=== PATIENT | male | born 1950 | race Caucasian/White ===

== ENCOUNTER 2022-07-31 11:36 | Inpatient (IN) | payer BC, OTHER ==
[~2022-07-31] VITALS: Ht 175.3 cm; Wt 69.4 kg
[2022-07-31 12:17] LABS: HEMATOCRIT 42.3 % (36.7-47.1); MEAN CORPUSCULAR HEMOGLOBIN 31.8 uug (23.8-33.4); MEAN CORPUSCULAR VOLUME 92.1 fL (73.0-96.2); PLATELET COUNT (AUTO) 249 K/uL (152-348)
[2022-07-31 12:57] LABS: CARBON DIOXIDE 32 mmol/L (21-32); CHLORIDE 101 mmol/L (98-107); CREATININE 1.4 mg/dL (0.6-1.3); GLUCOSE 93 mg/dL (74-106); POTASSIUM 4.4 mmol/L (3.5-5.1); UREA NITROGEN, BLOOD 28 mg/dL (7-18)
[2022-07-31] MEDS ORDERED: MULT-594 PO (13:09)
[2022-07-31] MEDS ORDERED: MAGN500P33 PO (13:09)
[2022-07-31] MEDS ORDERED: OXCA600T5 PO (13:09)
[2022-07-31] MEDS ORDERED: QUET100T PO (13:09)
[2022-07-31] MEDS ORDERED: ASPI81TA31 PO (13:09)
[2022-07-31] MEDS ORDERED: LOSA25TA27 PO (13:09)
[2022-07-31] MEDS ORDERED: ACET-73 PO (13:09)
[2022-07-31] MEDS ORDERED: KRIL1CAP18 PO (13:09)
[2022-07-31] MEDS ORDERED: BUPR-319 PO (13:09)
[2022-07-31] MEDS ORDERED: CHOL1CRY2 PO (13:09)
[2022-07-31] MEDS ORDERED: TAMS-3 PO (13:09)
[2022-07-31] MEDS ORDERED: SIMV-49 PO (13:09)
[2022-07-31] MEDS ORDERED: GABA300C PO (13:09)
[2022-07-31 13:14] LABS: *BILIRUBIN,URIN NEGATIVE (NEGATIVE); *BLOOD, URINE NEGATIVE (NEGATIVE); *CLARITY,URINE CLEAR (CLEAR); *COLOR,URINE YELLOW (YELLOW); *KETONES,URINE NEGATIVE (NEGATIVE); *UROBILINOGEN,URINE 0.2 E.U./dl (NORMAL); LEUKOCYTE ESTERASE ,URINE NEGATIVE (NEGATIVE); NITRITE, URINE NEGATIVE (NEGATIVE); UGLUCOSE NEGATIVE (NEGATIVE)
[2022-07-31 13:19] LABS: ALANINE AMINOTRANSFERASE 30 U/L (16-63); ALKALINE PHOSPHATASE 101 U/L (50-136); ASPARTATE AMINOTRANSFERASE 18 U/L (15-37); BILIRUBIN,DIRECT < 0.1 mg/dL (0.0-0.2); BILIRUBIN,TOTAL 0.3 mg/dL (0.2-1.0); TOTAL PROTEIN, SERUM 7.1 g/dL (6.4-8.2)
[2022-07-31 13:22] LABS: ACETAMINOPHEN < 10.0 ug/mL (10-30)
[2022-07-31 13:23] LABS: ETHANOL < 3 MG/DL (0-0)
[2022-07-31 13:29] LABS: *AMPHETAMINE, URINE NEGATIVE (NEGATIVE); *CANNABINOID, URINE NEGATIVE (NEGATIVE); *COCCAINE, URINE NEGATIVE (NEGATIVE); *OPIATE, URINE NEGATIVE (NEGATIVE); *PHENCYCLIDINE SCREEN,URINE NEGATIVE (NEGATIVE)
--- NOTE | 2022-07-31 14:54 | NUR ---
Covid-19 swab test done and sent to lab.
--- NOTE | 2022-07-31 14:58 | NUR ---
per pt., Okay to release info to Daughter, SORAIDA YUDELKA . Daughter knows pt Hx., etc.
--- NOTE | 2022-07-31 15:01 | NUR ---
1 to 1 sitter at the bedside.
--- NOTE | 2022-07-31 17:45 | NUR ---
Called report to RACHEL Guevara.
--- NOTE | 2022-07-31 20:54 | NUR ---
pt is ambulatory with steady gait. informed the pt we are waiting on insurance regarding him being admitted to the mental health unit at this hospital.
--- NOTE | 2022-07-31 21:55 | NUR ---
report given to chon in mental health pt will go to room 139a.
[2022-07-31 22:15] VITALS: BP 147/93
--- NOTE | 2022-07-31 22:15 | NUR ---
pt taken to mental health unit by seasonal warehouse associate by wheelchair.
[2022-07-31] MEDS ORDERED: MAG HYDROX/AL HYDROX/SIMETH 30 ML LIQUID UDC PO PRN (23:30)
[2022-07-31] MEDS ORDERED: LORAZEPAM 1 MG TABLET PO PRN (23:30)
[2022-07-31] MEDS ORDERED: ACETAMINOPHEN 325 MG TABLET PO PRN (23:30)
[2022-07-31] MEDS ORDERED: BLOOD SUGAR DIAGNOSTIC 1 EACH STRIP VI ONE (23:30)
[2022-07-31] MEDS ORDERED: MAGNESIUM HYDROXIDE 30 ML LIQUID UDC PO PRN (23:30)
[2022-07-31] MEDS: TEMAZEPAM 7.5 MG CAPSULE PO PRN (23:48)
--- NOTE | 2022-08-01 05:04 | NUR ---
GPS: Admitting Nursing Notes: Depressed: Patient admitted to MHU on 5150. BIB ER via wheel chair. Upon face to face evaluation AOx3, cooperative, speech clear, understands when spoken to. Depressed with anxiety, and crying. Patient stated "nobody is friendly towards me." "Nobody smiles and says hi to me when I say hi to them." "It's not the same as it use to be." Patient is ambulatory without assistance nor assistive device. Although gait and balance is unsteady. Denies any pain. No s/s of resp distress. Patient was oriented to unit, understands reason for being admitted, and the unit's rules. Patient is well nourished, was given snacks and drinks. Patient requested medication for insomnia. Temazepam given @ 2348 hours. Patient rights explained to her, and given the rights handbook and advisement at bedside. Patient safety in place. Will continue to monitor.
[2022-08-01 08:24] LABS: ALANINE AMINOTRANSFERASE 26 U/L (16-63); ALKALINE PHOSPHATASE 103 U/L (50-136); ASPARTATE AMINOTRANSFERASE 15 U/L (15-37); BILIRUBIN,TOTAL 0.6 mg/dL (0.2-1.0); CARBON DIOXIDE 31 mmol/L (21-32); CHLORIDE 100 mmol/L (98-107); CREATININE 1.4 mg/dL (0.6-1.3); GLUCOSE 102 mg/dL (74-106); TOTAL PROTEIN, SERUM 7.2 g/dL (6.4-8.2); UREA NITROGEN, BLOOD 21 mg/dL (7-18)
[2022-08-01 08:44] VITALS: BP 168/90
[2022-08-01] MEDS ORDERED: LORAZEPAM 0.5 MG TABLET PO PRN (12:15)
--- NOTE | 2022-08-01 12:30 | NUR ---
GPS: Nursing Notes: Severe Anxiety: Patient with severe anxiety, found on his room, laying down on his left side on the floor, stating "I want to hurt myself..", "I want to hit my head against the floor..", staff assisting him to get up and sit him near the nursing station, when asked if he fell, stated "No, I laid down to hurt my head against the floor..", no redness or bruises noted on his head, constantly stating the he wants to , anxious, poor impulse control, setting limits, but unable to follow directions, continue to monitor for safety, staff called Dr. Robledo due to self destructive behavior.
[2022-08-01] MEDS ORDERED: OLANZAPINE 10 MG VIAL IM ONE (12:40)
[2022-08-01] MEDS: CLONAZEPAM 0.5 MG TABLET PO SCH ×2 (12:42→20:13)
[2022-08-01] MEDS: OXCARBAZEPINE 300 MG TABLET PO SCH ×2 (12:42→20:12)
--- NOTE | 2022-08-01 13:02 | NUR ---
GPS: Nursing Notes: Chemical Restraint: Patient continue with self destructive behavior, shouting "If I don't get help I hurt myself.. I will hit my head hard..", trying to lay down on the floor, stated "I am hearing voices telling me to jump off a building..", redirected, but unable to follow directions due to his self destructive behavior, Dr. Robledo called and ordered: Zyprexa 5mg IM STAT X1 for self destructive behavior, R=18, medication IM given at this time, continue to monitor for safety, continue with treatment plan.
[2022-08-01] MEDS ORDERED: BENZ0.5T43 PO (13:20)
--- NOTE | 2022-08-01 13:32 | NUR ---
GPS: Nursing Notes: Reassessment of Chemical Restraint: Patient sitting next to the nursing station. Patient is calmed and relaxed, R18, medication IM was effective, continue to monitor for safety, continue with treatment plan.
--- NOTE | 2022-08-01 14:58 | NUR ---
MEAGAN Family Contact: MEAGAN contacted pt's nephew, Pedro Pablo ([phone]) and discussed the pt's discharge plan. Pedro Pablo informed this press writer that pt will return to [facility] located at [address] [place] [address] in [place] [address] ([phone]), Pedro Pablo informed MEAGAN to speak to [facility] for any questions. Pedro Pablo stated he will provide transportation for the pt upon discharge. Pedro Pablo stated he is the only point of contact for the pt.
[2022-08-01 16:57] VITALS: BP 98/69
[2022-08-01] MEDS ORDERED: CLONAZEPAM 0.5 MG TABLET PO SCH (17:00)
[2022-08-01] MEDS ORDERED: OXCARBAZEPINE 300 MG TABLET PO SCH (17:00)
[2022-08-01] MEDS: GABAPENTIN 300 MG CAPSULE PO SCH (18:15)
[2022-08-01 19:53] VITALS: BP 95/52
[2022-08-01] MEDS: QUETIAPINE FUMARATE 100 MG TABLET PO SCH (20:06)
[2022-08-01] MEDS: TAMSULOSIN HCL 0.4 MG CAP.SR.24H PO SCH (20:07)
[2022-08-01] MEDS: TEMAZEPAM 7.5 MG CAPSULE PO PRN (20:44)
[2022-08-01] MEDS ORDERED: SIMVASTATIN 40 MG TABLET PO SCH (21:00)
--- NOTE | 2022-08-02 04:41 | NUR ---
GPS NOTES: Patient received in the hallway,sitting in the gerichair, he is calm at first approached, then later is noted with confusion regarding his medications. Explained that some of his medications he is requesting is his AM routine medications. He got up and was very unsteady, he is advised to sit again in the chair for safety near the nurses station for close observation and is compliant. Patient has a brief moment of aggression noted when attempt to get out of the chair, explained that he is in close observation d/t safety, he became argumentative and states he is tired and wants to go to bed. 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 He slept well during shift, frequent monitoring observed for danger to self.
[2022-08-02 07:30] VITALS: BP 125/90
[2022-08-02] MEDS: ASPIRIN 81 MG TAB.CHEW PO SCH (08:26)
[2022-08-02] MEDS: CLONAZEPAM 0.5 MG TABLET PO SCH (08:27)
[2022-08-02] MEDS: LOSARTAN POTASSIUM 25 MG TABLET PO SCH ×2 (08:27→17:00)
[2022-08-02] MEDS: MULTIVITAMINS,THERAPEUTIC TABLET PO SCH (08:28)
[2022-08-02] MEDS: GABAPENTIN 300 MG CAPSULE PO SCH ×2 (08:28→17:14)
[2022-08-02] MEDS: OXCARBAZEPINE 300 MG TABLET PO SCH ×3 (08:28→17:14)
[2022-08-02] MEDS ORDERED: Medication Not On Formulary EA (Multivitamins (Multivitamin) 1 TAB) PO SCH (09:00)
[2022-08-02] MEDS ORDERED: Medication Not On Formulary EA (Krill/Om-3/Dha/Epa/Phospho/Ast (Krill Oil 500 mg Softgel PO SCH (09:00)
--- NOTE | 2022-08-02 15:36 | NUR ---
MEAGAN UR Note: MEAGAN contacted [facility] at [phone] to speak to Kaity and was not able to leave a voicemail regarding authorization review for the pt for continuation of care.
--- NOTE | 2022-08-02 16:08 | NUR ---
MEAGAN Initial Discharge Note: Pt currently resides at [facility] located at [address] [place] [address] in [place] [address] ([phone]). Pt spoke with Shannan at the facility who stated pt is welcome back upon discharge. Pt's nephew, Pedro Pablo ([phone]) stated that he will provide transportation for the pt to return to [place] upon discharge from [facility]. MEAGAN will continue to work with pt, family and MD to ensure a safe and proper discharge plan.
--- NOTE | 2022-08-02 16:09 | NUR ---
Patient is depressed, quiet, labile, denies suicidal ideations. A/O X 3 to person, place. Patient is compliant with medications and follows directions. Self care. Emotional support provided. Fall and safety precautions implemented.
[2022-08-02 17:03] VITALS: BP 105/75
[2022-08-02 19:45] VITALS: BP 114/85
[2022-08-02] MEDS: QUETIAPINE FUMARATE 100 MG TABLET PO SCH (20:32)
[2022-08-02] MEDS: TAMSULOSIN HCL 0.4 MG CAP.SR.24H PO SCH (20:32)
[2022-08-02] MEDS ORDERED: SIMVASTATIN 20 MG TABLET PO SCH (21:00)
--- NOTE | 2022-08-02 21:29 | NUR ---
GPS: Received patient lying in bed. Patient is awake and responding to his name, pleasant upon approach. compliant with meds. internally preoccupied. unable to formulate a viable plan for self care, continue to monitor for safety, participating in therapeutic groups, continue with treatment plan.
--- NOTE | 2022-08-03 05:50 | NUR ---
GPS: Patient remain calm and cooperative with meds and care. no prn given through the shift. slept 8.45 hrs through the night. continue plan of care.
[2022-08-03 07:30] VITALS: BP 162/88
--- NOTE | 2022-08-03 08:27 | NUR ---
MEAGAN UR Note: MEAGAN contacted Kaity at [facility] ([phone]) and was not able to get connected or leave a voicemail regarding pt's authorization review. MEAGAN informed Directors, Dr. Mckeon and Dr. Reilly for the contact attempt. MEAGAN will continue to contact [facility].
[2022-08-03] MEDS: GABAPENTIN 300 MG CAPSULE PO SCH (09:05)
[2022-08-03] MEDS: OXCARBAZEPINE 300 MG TABLET PO SCH ×2 (09:05→13:43)
[2022-08-03] MEDS: ASPIRIN 81 MG TAB.CHEW PO SCH (09:05)
[2022-08-03] MEDS: MULTIVITAMINS,THERAPEUTIC TABLET PO SCH (09:05)
--- NOTE | 2022-08-03 09:10 | NUR ---
MEAGAN Family Contact: MEAGAN contacted pt's nephew, Pedro Pablo ([phone]) and discussed the pt's possible discharge plan for today. MEAGAN informed Pedro Pablo that this residential mortgage underwriter has not been able to be in contact with [facility] yet and will confirm once this residential mortgage underwriter speaks with them. Pedro Pablo informed MEAGAN that he would like to pick out hand the pt today. MEAGAN stated she will update Pedro Pablo regarding the insurance contact and with the Psychiatrist.
[2022-08-03 09:12] VITALS: BP 162/88
[2022-08-03] MEDS: LOSARTAN POTASSIUM 25 MG TABLET PO SCH (09:12)
--- NOTE | 2022-08-03 09:12 | NUR ---
MEAGAN UR Note: MEAGAN contacted Kaity at [facility] ([phone]) and was able to leave a detailed voicemail this time regarding pt's discharge plan and to contact this commercial lines underwriter back for UR authorization review. MEAGAN informed Kaity that a fax of patients clinicals has been sent to ([phone]).
--- NOTE | 2022-08-03 09:18 | NUR ---
Social Work Coordination of Care: Audio/Visual Operator faxed patient's referral packet including: History and Physical, Consultation, Progress Notes, Medication List and Labs to the following facilities for review and possible usp placement: [facility] P:[phone] F: ([phone]). (Attention to [facility] [phone]).
--- NOTE | 2022-08-03 09:21 | NUR ---
MEAGAN UR Note Update: MEAGAN contacted a second number at [facility] ([phone]) and spoke with Patricia. MEAGAN informed Patricia the clinicals and progress of the pt has been faxed. Patricia stated to this scientific writer that she will contact this scientific writer with an update for the pt's continuation of care once the fax is received and reviewed. MEAGAN informed Patricia that the pt has a discharge plan confirmed by the pt's nephew, Pedro Pablo ([phone]) for today to return to either pt's assisted living at [facility] or home with family. MEAGAN also informed Patricia that this scientific writer left a voicemail for Kaity as well. Patricia stated she is currently busy and that Patricia can help as well.
--- NOTE | 2022-08-03 12:00 | NUR ---
Patient is isolative, withdrawn, cooperative with nursing care, compliant with medications. A/O X 3 to person, place. Self care. Emotional support provided. Fall and safety precautions implemented.
--- NOTE | 2022-08-03 12:13 | NUR ---
MEAGAN Discharge Note: Pt will be discharged to [facility] located at [address] [place] [address] ([phone]) at 2PM. MEAGAN spoke with admin coordinator, Shannan at the facility who states they are ready to accept the patient today. Pt is aware and agreeable with discharge plan. Pts nephew, Pedro Pablo ([phone]) and pts sister, Almaz ([phone]) is aware and agreeable with the discharge plan. Pt is alert and oriented x4, is unable to plan for self-care at this time. However, pt is willing to to return to [facility] and accept care. Pt denies any suicidal or homicidal ideation. Pt will follow-up at the facility with Psychiatrist, Dr. Childers ([phone]) and pts outpatient Safety Equipment Testing Specialist. Pt presents with calm mood and congruent affect. PHARMACY: [facility] ([phone]) [address] [facility].
[2022-08-03] MEDS ORDERED: GLUCERNA SHAKE 237 ML CAN PO SCH (12:15)
--- NOTE | 2022-08-03 14:01 | NUR ---
Medical prescription was called in to [facility] pharmacy. [phone]. Spoke with Jenae, pharmacist.
--- NOTE | 2022-08-03 16:15 | NUR ---
Firearms Report: Production Hardener completed and submitted a [employer] firearms report for 5150 a danger to himself. A copy of report has been placed in patient chart.
== END 2022-08-03 14:00 | DRG 885 ==
LOC: ER 11:36 → GPS 21:50
PROVIDERS: ADMIT Psychiatry & Neurology Psychosomatic Medicine; ATTEND Internal Medicine
DX: F31.9 Bipolar disorder, unspecified (principal); N17.0 Acute kidney failure with tubular necrosis; R45.851 Suicidal ideations; D68.59 Other primary thrombophilia; G20 Parkinson's disease; E11.9 Type 2 diabetes mellitus without complications; E78.5 Hyperlipidemia, unspecified; F22 Delusional disorders; I10 Essential (primary) hypertension; Z79.82 Long term (current) use of aspirin; Z91.51 Personal history of suicidal behavior; R41.9 Unspecified symptoms and signs involving cognitive functions and awareness; I12.9 Hypertensive chronic kidney disease with stage 1 through stage 4 chronic kidney disease, or unspecified chronic kidney disease; N18.2 Chronic kidney disease, stage 2 (mild); Z74.09 Other reduced mobility; N40.0 Benign prostatic hyperplasia without lower urinary tract symptoms; Z20.822 Contact with and (suspected) exposure to COVID-19; Z88.2 Allergy status to sulfonamides
CPT/HCPCS: 36415; 70450; 85025; 93005; A4663; G0480; J2358